=== PATIENT | female | born 1995 | race African-American/Black ===

== ENCOUNTER 2018-12-02 13:39 | Observation (INO) | payer MEDICAID | END 2018-12-02 15:00 | disposition home or self-care (01) | LOC: 8 EST LDRP 13:39 | PROVIDERS: ADMIT Specialist; ATTEND Specialist | DX: O62.9 Abnormality of forces of labor, unspecified (principal); Z3A.36 36 weeks gestation of pregnancy | CPT/HCPCS: 99281; G0378 ==